=== PATIENT | male | born 1995 | race Caucasian/White ===

== ENCOUNTER 2024-11-13 22:00 | Emergency (ER) | payer BC, SELFPAY ==
--- NOTE | 2024-11-13 22:33 | ED.GENMED ---
History of Present Illness
General
Chief Complaint: Musculo-Skeletal Complaint
Source: patient
Time Seen by Provider: 11/13/24 22:13
History of Present Illness
History of Present Illness:
29-year-old male presenting to the emergency department for evaluation after he hit a punching bag and injured his right wrist/hand noting immediate pain and swelling and difficulty with range of motion due to the pain. Patient is right-hand
dominant, no other injuries were sustained.
Past History
Past History
ED Past Medical History: None
ED Past Surgical History: Appendectomy
Social History
Tobacco: Non-smoker
Alcohol: Occasional
Drug: None
Personal:
Living: with family
Employment: Employed
Review of Systems
Review of Systems
All Other Systems: ROS reviewed and negative except as documented in HPI and ROS
Phy Exam
Physical Exam
Physical Exam:
GENERAL: Alert , in no apparent distress
EYE: conjunctiva clear
Head: Normocephalic atraumatic
NECK: Supple,
ENT: mmm.
LUNGS: no acute respiratory distress
NEUROLOGICAL: Alert and oriented
SKIN: Warm and dry, skin intact.
MUSCULOSKELETAL: Right upper extremity: Soft tissue swelling noted to the dorsum of the right hand extending down towards the carpal bones and distal radius. Tenderness over the dorsal aspect of this area as well. Decreased flexion and extension
of the wrist secondary to pain. Patient is able to range of motion digits but has discomfort within the metacarpals mainly around the third and fourth. Remainder of extremity is otherwise warm and well-perfused and neurovascularly intact.
PSYCH: Normal and appropriate interaction.
Scores
Heart Failure Risk
Heart Failure Risk Score: Not Applicable
Heart Score for Chest Pain Patients
STEMI patient?: Not applicable
Withdrawal Assessment of Alcohol
Withdrawal Assessment Completed?: Not applicable
Course
Orders/Labs/Results
Orders:
Orders
11/13/24 22:05
Wrist, Right 3 Views [CR Wrist - Right Min 3 Views] Urgent
Comment:
Reason For Exam: pain
11/13/24 22:34
Ketorolac [Toradol] 60 mg IM NOW STA
Procedures
Splinting/Sling Placement
Right Wrist:
Procedure completed by: Melania
Pre-splint extermity exam: neurovascular intact
Type of splint: volar
Splint material: other (3 inch Ortho-Glass)
Splint checked by provider?: Yes
Normal distal neurovascular exam?: Yes
MDM/Problems Addressed
Differential Diagnosis Includes:
Sprain, contusion, fracture
MDM/Problems Addressed:
29-year-old male presenting the ER for evaluation of right wrist and hand pain following an injury earlier this evening. X-ray ordered does not show any acute fractures. Given the amount of swelling as well as pain with range of motion splint was
still placed for comfort. Information for orthopedics was provided. Dose of Toradol given for pain control. Continue NSAIDs/Tylenol as needed for pain at home. Patient otherwise stable for discharge and aware of return precautions.
*Radiology
Radiology exam reviewed: preliminary read by ED provider (No acute fracture)
*Pulse Oximetry
Patient hypoxic: no
*Critical Care Note
Total Time (30-74mins, 75-104mins- exclusive of procedures): Not Applicable
ED Attending Note
-
Portions of this chart may have been created with voice recognition software.� Occasional wrong word or��sound alike� substitutions may have occurred due to the inherent limitations of voice recognition software.
Discharge Plan
Departure
Patient Disposition: Home (Routine Discharge)
Date of Disposition: 11/13/24
Time of Disposition: 22:33
Patient with high blood pressure during this ER visit?: No
Discharge Problem:
Right wrist sprain
Instructions: Sprain (DC)
Referrals:
Saul,Eliza I., DO [Active] - (Ortho)
Interventions
Interventions:
*Risk Screen - Suicide Last Done: 11/13/24 22:02
*General Assessment Last Done: 11/13/24 22:02
*Neglect/Abuse Screening Last Done: 11/13/24 22:02
*ED COVID-19 Vaccine History Last Done: 11/13/24 22:02
*Nursing Disposition Last Done: 11/13/24 23:04
ED-Musculoskeletal Assessment Last Done: 11/13/24 22:25
Discharge Date and Time
Discharge Date/Time: 11/13/24 23:04
Print Language: FRENCH
[2024-11-13] MEDS: TORADOL 60 MG IM (22:53)
== END 2024-11-13 23:04 | disposition home or self-care (01) ==
LOC: EMR 22:00
PROVIDERS: EMERGENCY PHYSICIAN Student in an Organized Health Care Education/Training Program; FAMILY PHYSICIAN Nurse Practitioner
DX: S63.501A Unspecified sprain of right wrist, initial encounter (principal); W22.8XXA Striking against or struck by other objects, initial encounter
CPT/HCPCS: 99284; 96372; 29125; 73110

== ENCOUNTER → 2024-11-19 18:10 | Outpatient (REF) | payer BC, SELFPAY | LOC: PAVMRI 18:10 | PROVIDERS: ATTENDING PHYSICIAN Physician Assistant; FAMILY PHYSICIAN Nurse Practitioner | DX: M25.531 Pain in right wrist (principal) | CPT/HCPCS: 73221 ==